=== PATIENT | female | born 1950 | race Caucasian/White ===

== ENCOUNTER 2021-10-07 16:08 | Inpatient (IN) ==
[2021-10-07] MEDS ORDERED: D5% in Water 1,000 ML IVC PRN (20:27)
[2021-10-07] MEDS ORDERED: Dextrose 4 GM Chewable Tablets PO PRN ×2 (20:27)
[2021-10-07] MEDS ORDERED: *HR* Dextrose 50 % in Water (Syg) 50 ML SYRINGE IVP PRN (20:27)
[2021-10-07] MEDS: Gabapentin 100 MG CAPSULE PO SCH (20:55)
[2021-10-07] MEDS: Carbidopa/Levodopa 25/100 TABLET PO SCH (20:55)
[2021-10-07] MEDS: *HR* OxyCODONE ER (12 HR) 10 MG TABLET PO SCH (20:56)
[2021-10-07] MEDS: Sennosides/Docusate Sodium TABLET PO SCH (20:56)
[2021-10-07] MEDS: *HR* Heparin 5,000 UNIT/ML VIAL SQ SCH (20:56)
[2021-10-07] MEDS: traZODone 50 MG TABLET PO SCH (20:56)
[2021-10-07] MEDS: Insulin LISPRO 300 UNITS/3 ML VIAL SUBQ SCH (21:49)
[2021-10-08] MEDS: *HR* OxyCODONE/APAP 10/325 TABLET PO PRN ×4 (00:43→23:12)
[2021-10-08] MEDS: *HR* Heparin 5,000 UNIT/ML VIAL SQ SCH ×2 (05:07→17:02)
[2021-10-08 05:59] LABS: Basophils % 0.2 %; Eosinophils # 0.3 K/mcL (0.0-0.6); Eosinophils % 2.8 %; Hematocrit 27.6 % (35.3-44.9); Hemoglobin 8.6 g/dL (11.5-15.4); Lymphocytes # 2.2 K/mcL (0.6-4.6); Lymphocytes % 23.6 %; Mean Corpuscular HGB Conc 31.2 g/dL (31.6-35.5); Mean Corpuscular Hemoglobin 29.6 pg (28.0-33.3); Mean Corpuscular Volume 94.8 fL (83.0-100.0); Mean Platelet Volume 9.1 fL (9.4-12.4); Monocytes # 0.9 K/mcL (0.0-1.3); Platelet Count 327 K/mcL (140-400); Red Blood Count 2.91 M/mcL (3.82-4.97); Red Cell Distribution Width 13.2 % (11.5-14.5); Segmented Neutrophils % 63.4 %; White Blood Count 9.4 K/mcL (4.3-11.1)
[2021-10-08 06:17] LABS: Calcium 9.2 mg/dL (8.6-10.3); Potassium 4.6 mEq/L (3.5-5.1)
[2021-10-08] MEDS: Insulin LISPRO 300 UNITS/3 ML VIAL SUBQ SCH ×4 (08:18→19:48)
[2021-10-08] MEDS: lisinopriL 5 MG TABLET PO SCH (08:20)
[2021-10-08] MEDS: Sennosides/Docusate Sodium TABLET PO SCH ×2 (08:20→20:22)
[2021-10-08] MEDS: *HR* OxyCODONE ER (12 HR) 10 MG TABLET PO SCH ×2 (08:20→20:22)
[2021-10-08] MEDS: Multivit/Ca/Min/Fe/FA 1 TAB TABLET PO SCH (08:20)
[2021-10-08] MEDS: Carbidopa/Levodopa 25/100 TABLET PO SCH ×3 (08:20→20:23)
[2021-10-08] MEDS: Gabapentin 100 MG CAPSULE PO SCH ×3 (08:21→20:23)
[2021-10-08] MEDS ORDERED: NON-FORMULARY MEDICATION 1 EACH EACH (Vit A/Vit C/Vit E/Zinc/Copper [Preservision Areds Ta PO SCH (09:00)
[2021-10-08 16:18] LABS: Bilirubin,Urine Negative (Negative); Blood,Urine Negative (Negative); Clarity,Urine Slightly Cloudy (Clear); Color,Urine Yellow (Yellow); Glucose,Urine (UA) Normal (Normal); Ketones,Urine 15 mg/dL (Negative); Leukocyte Esterase,Urine Negative (Negative); Nitrite,Urine Positive (Negative); PH,Urine 5.5 pH Units (5.0-8.0); Protein,Urine Negative (Neg-Trace); Urobilinogen,Urine Normal (Normal)
[2021-10-08 16:28] LABS: Bacteria,Urine Many per hpf (None-Few)
[2021-10-08 16:29] LABS: Mucus,Urine Few per lpf (None-Few); RBC,Urine 0-3 per hpf (0-3); Squamous Epithelial Cell,Urine Few per hpf (None-Few); WBC,Urine 15-30 per hpf (0-3)
[2021-10-08] MEDS: traZODone 50 MG TABLET PO SCH (20:23)
[2021-10-09] MEDS: *HR* OxyCODONE/APAP 10/325 TABLET PO PRN ×2 (05:29→16:51)
[2021-10-09] MEDS: *HR* Heparin 5,000 UNIT/ML VIAL SQ SCH ×2 (05:29→16:51)
[2021-10-09] MEDS: Insulin LISPRO 300 UNITS/3 ML VIAL SUBQ SCH ×4 (07:29→20:23)
[2021-10-09] MEDS: lisinopriL 5 MG TABLET PO SCH (09:08)
[2021-10-09] MEDS: Gabapentin 100 MG CAPSULE PO SCH ×3 (09:23→20:42)
[2021-10-09] MEDS: *HR* OxyCODONE ER (12 HR) 10 MG TABLET PO SCH ×2 (09:23→20:41)
[2021-10-09] MEDS: Sennosides/Docusate Sodium TABLET PO SCH ×2 (09:23→20:42)
[2021-10-09] MEDS: Carbidopa/Levodopa 25/100 TABLET PO SCH ×3 (09:24→20:41)
[2021-10-09] MEDS: Multivit/Ca/Min/Fe/FA 1 TAB TABLET PO SCH (09:24)
[2021-10-09] MEDS: Nitrofurantoin (BID) 100 MG CAPSULE PO SCH ×2 (09:24→16:51)
[2021-10-09] MEDS: Megestrol Acetate 400 MG/10 ML UDC PO SCH (11:24)
[2021-10-09] MEDS: traZODone 50 MG TABLET PO SCH (20:41)
[2021-10-10] MEDS: *HR* Heparin 5,000 UNIT/ML VIAL SQ SCH ×2 (05:18→17:49)
[2021-10-10] MEDS: *HR* OxyCODONE/APAP 10/325 TABLET PO PRN ×2 (05:21→22:47)
[2021-10-10] MEDS ORDERED: 0.9 % Sodium Chloride 500 ML IVC ONE ×2 (06:17→06:18)
[2021-10-10 06:23] LABS: Basophils % 0.2 %; Eosinophils # 0.4 K/mcL (0.0-0.6); Immature Granulocytes % 1.2 % (0-4); Lymphocytes # 2.8 K/mcL (0.6-4.6); Lymphocytes % 22.4 %; Mean Corpuscular HGB Conc 32.1 g/dL (31.6-35.5); Mean Corpuscular Hemoglobin 29.7 pg (28.0-33.3); Mean Corpuscular Volume 92.4 fL (83.0-100.0); Mean Platelet Volume 9.3 fL (9.4-12.4); Monocytes # 1.1 K/mcL (0.0-1.3); Monocytes % 8.5 %; Platelet Count 407 K/mcL (140-400); Red Blood Count 3.03 M/mcL (3.82-4.97); Red Cell Distribution Width 13.5 % (11.5-14.5); Segmented Neutrophils % 64.7 %; White Blood Count 12.3 K/mcL (4.3-11.1)
[2021-10-10 06:55] LABS: Alanine Aminotransferase 7 Units/L (7-52); Albumin 3.2 g/dL (3.5-5.7); Alkaline Phosphatase 105 Units/L (34-104); Aspartate Amino Transferase 21 Units/L (13-39); BUN/Creatinine Ratio 30 (6-26); Bilirubin,Total 0.4 mg/dL (0.3-1.0); Blood Urea Nitrogen 27 mg/dL (8-23); Calcium 9.5 mg/dL (8.6-10.3); Carbon Dioxide 28 mEq/L (23-29); Chloride 100 mEq/L (98-107); Globulin 3.2 g/dL (2.4-3.5); Glucose 133 mg/dL (70-105); Magnesium 2.1 mg/dL (1.6-2.6); Osmolality,Calculated 283 (280-300); Phosphorous 2.8 mg/dL (2.7-4.5); Potassium 4.3 mEq/L (3.5-5.1); Sodium 133 mEq/L (136-145); Total Protein 6.4 g/dL (6.4-8.9); eGFR For African Americans > 60 (> 60); eGFR For Non-African Americans > 60 (> 60)
[2021-10-10] MEDS: Insulin LISPRO 300 UNITS/3 ML VIAL SUBQ SCH ×4 (07:39→20:37)
[2021-10-10] MEDS: Sennosides/Docusate Sodium TABLET PO SCH ×2 (07:56→20:35)
[2021-10-10] MEDS: Multivit/Ca/Min/Fe/FA 1 TAB TABLET PO SCH (07:56)
[2021-10-10] MEDS: Megestrol Acetate 400 MG/10 ML UDC PO SCH (07:56)
[2021-10-10] MEDS: Nitrofurantoin (BID) 100 MG CAPSULE PO SCH (07:57)
[2021-10-10] MEDS: *HR* OxyCODONE ER (12 HR) 10 MG TABLET PO SCH ×2 (07:57→20:37)
[2021-10-10] MEDS: Gabapentin 100 MG CAPSULE PO SCH ×3 (07:57→20:36)
[2021-10-10] MEDS: lisinopriL 5 MG TABLET PO SCH (07:57)
[2021-10-10] MEDS: Carbidopa/Levodopa 25/100 TABLET PO SCH ×3 (07:57→20:34)
[2021-10-10] MEDS ORDERED: 0.9 % Sodium Chloride 1,000 ML IVC SCH (11:15)
[2021-10-10] MEDS: traZODone 50 MG TABLET PO SCH (20:34)
[2021-10-11 04:26] LABS: Basophils % 0.2 %; Eosinophils # 0.3 K/mcL (0.0-0.6); Eosinophils % 2.9 %; Hematocrit 25.3 % (35.3-44.9); Hemoglobin 8.2 g/dL (11.5-15.4); Lymphocytes # 2.8 K/mcL (0.6-4.6); Lymphocytes % 24.8 %; Mean Corpuscular HGB Conc 32.4 g/dL (31.6-35.5); Mean Corpuscular Volume 92.7 fL (83.0-100.0); Monocytes # 0.9 K/mcL (0.0-1.3); Monocytes % 7.8 %; Platelet Count 359 K/mcL (140-400); Red Blood Count 2.73 M/mcL (3.82-4.97); Red Cell Distribution Width 13.8 % (11.5-14.5); Segmented Neutrophils % 63.3 %; White Blood Count 11.1 K/mcL (4.3-11.1)
[2021-10-11 04:41] LABS: BUN/Creatinine Ratio 23 (6-26); Blood Urea Nitrogen 21 mg/dL (8-23); Calcium 8.9 mg/dL (8.6-10.3); Carbon Dioxide 29 mEq/L (23-29); Chloride 102 mEq/L (98-107); Glucose 115 mg/dL (70-105); Osmolality,Calculated 282 (280-300); Potassium 4.4 mEq/L (3.5-5.1); Sodium 134 mEq/L (136-145); eGFR For African Americans > 60 (> 60); eGFR For Non-African Americans > 60 (> 60)
[2021-10-11] MEDS: *HR* Heparin 5,000 UNIT/ML VIAL SQ SCH ×2 (06:00→14:31)
[2021-10-11] MEDS: Carbidopa/Levodopa 25/100 TABLET PO SCH ×3 (08:08→20:57)
[2021-10-11] MEDS: Insulin LISPRO 300 UNITS/3 ML VIAL SUBQ SCH ×4 (08:08→20:58)
[2021-10-11] MEDS: Multivit/Ca/Min/Fe/FA 1 TAB TABLET PO SCH (08:08)
[2021-10-11] MEDS: lisinopriL 5 MG TABLET PO SCH (08:09)
[2021-10-11] MEDS: *HR* OxyCODONE ER (12 HR) 10 MG TABLET PO SCH ×2 (08:09→20:57)
[2021-10-11] MEDS: Sennosides/Docusate Sodium TABLET PO SCH ×2 (08:09→20:57)
[2021-10-11] MEDS: Megestrol Acetate 400 MG/10 ML UDC PO SCH ×2 (08:10→08:12)
[2021-10-11] MEDS: Gabapentin 100 MG CAPSULE PO SCH ×3 (08:10→21:01)
[2021-10-11] MEDS: *HR* OxyCODONE/APAP 10/325 TABLET PO PRN (14:30)
[2021-10-11] MEDS ORDERED: 0.9 % Sodium Chloride 1,000 ML IVC SCH (18:00)
[2021-10-11] MEDS: traZODone 50 MG TABLET PO SCH (20:57)
[2021-10-12] MEDS ORDERED: Ketorolac 30 MG/ML VIAL IVP ONE (04:20)
[2021-10-12] MEDS: *HR* Heparin 5,000 UNIT/ML VIAL SQ SCH ×2 (04:40→17:02)
[2021-10-12 05:12] LABS: Basophils % 0.4 %; Eosinophils # 0.5 K/mcL (0.0-0.6); Hemoglobin 7.7 g/dL (11.5-15.4); Immature Granulocytes % 1.2 % (0-4); Lymphocytes # 2.5 K/mcL (0.6-4.6); Lymphocytes % 28.8 %; Mean Corpuscular HGB Conc 32.1 g/dL (31.6-35.5); Mean Corpuscular Hemoglobin 30.4 pg (28.0-33.3); Mean Corpuscular Volume 94.9 fL (83.0-100.0); Mean Platelet Volume 9.5 fL (9.4-12.4); Monocytes # 0.6 K/mcL (0.0-1.3); Monocytes % 7.4 %; Neutrophils # 4.8 K/mcL (1.6-8.9); Platelet Count 372 K/mcL (140-400); Red Blood Count 2.53 M/mcL (3.82-4.97); Red Cell Distribution Width 14.3 % (11.5-14.5); Segmented Neutrophils % 56.2 %; White Blood Count 8.6 K/mcL (4.3-11.1)
[2021-10-12 05:25] LABS: BUN/Creatinine Ratio 22 (6-26); Blood Urea Nitrogen 19 mg/dL (8-23); Calcium 8.6 mg/dL (8.6-10.3); Carbon Dioxide 27 mEq/L (23-29); Chloride 106 mEq/L (98-107); Glucose 131 mg/dL (70-105); Osmolality,Calculated 288 (280-300); Potassium 4.3 mEq/L (3.5-5.1); Sodium 137 mEq/L (136-145); eGFR For African Americans > 60 (> 60); eGFR For Non-African Americans > 60 (> 60)
[2021-10-12] MEDS: Insulin LISPRO 300 UNITS/3 ML VIAL SUBQ SCH ×4 (08:50→21:08)
[2021-10-12] MEDS: *HR* OxyCODONE/APAP 10/325 TABLET PO PRN ×2 (08:54→14:50)
[2021-10-12] MEDS: *HR* OxyCODONE ER (12 HR) 10 MG TABLET PO SCH ×2 (08:54→21:06)
[2021-10-12] MEDS: Sennosides/Docusate Sodium TABLET PO SCH ×2 (08:55→21:07)
[2021-10-12] MEDS: Multivit/Ca/Min/Fe/FA 1 TAB TABLET PO SCH (08:55)
[2021-10-12] MEDS: Megestrol Acetate 400 MG/10 ML UDC PO SCH (08:55)
[2021-10-12] MEDS: Carbidopa/Levodopa 25/100 TABLET PO SCH ×3 (08:55→21:07)
[2021-10-12] MEDS: Gabapentin 100 MG CAPSULE PO SCH ×3 (08:56→21:06)
[2021-10-12] MEDS: lisinopriL 5 MG TABLET PO SCH (09:55)
[2021-10-12] MEDS ORDERED: 0.9 % Sodium Chloride 1,000 ML IVC SCH (12:00)
[2021-10-12] MEDS: Cefepime HCl 1,000 MG in 0.9 % Sodium Chloride 10 ML IVP SCH ×2 (12:44→23:49)
[2021-10-12] MEDS ORDERED: Cefepime HCl 1,000 MG in 0.9 % Sodium Chloride 10 ML IVP SCH (18:00)
[2021-10-12] MEDS: traZODone 50 MG TABLET PO SCH (21:06)
[2021-10-12] MEDS: polyethylene glycoL 3350 17 GM POWD.PACK PO SCH (21:07)
[2021-10-13] MEDS: *HR* Heparin 5,000 UNIT/ML VIAL SQ SCH ×2 (05:34→17:40)
[2021-10-13] MEDS: Insulin LISPRO 300 UNITS/3 ML VIAL SUBQ SCH ×4 (08:10→20:06)
[2021-10-13] MEDS: Carbidopa/Levodopa 25/100 TABLET PO SCH ×3 (08:12→20:24)
[2021-10-13] MEDS: polyethylene glycoL 3350 17 GM POWD.PACK PO SCH ×2 (08:12→20:22)
[2021-10-13] MEDS: Megestrol Acetate 400 MG/10 ML UDC PO SCH (08:12)
[2021-10-13] MEDS: lisinopriL 5 MG TABLET PO SCH (08:12)
[2021-10-13] MEDS: Gabapentin 100 MG CAPSULE PO SCH ×3 (08:12→20:23)
[2021-10-13] MEDS: Sennosides/Docusate Sodium TABLET PO SCH ×2 (08:12→20:23)
[2021-10-13] MEDS: *HR* OxyCODONE ER (12 HR) 10 MG TABLET PO SCH ×2 (08:12→20:23)
[2021-10-13] MEDS: Multivit/Ca/Min/Fe/FA 1 TAB TABLET PO SCH (08:12)
[2021-10-13] MEDS: Cefepime HCl 1,000 MG in 0.9 % Sodium Chloride 10 ML IVP SCH ×2 (11:10→23:20)
[2021-10-13] MEDS: *HR* OxyCODONE/APAP 10/325 TABLET PO PRN ×2 (11:10→17:40)
[2021-10-13 11:11] LABS: Basophils % 0.3 %; Eosinophils # 0.8 K/mcL (0.0-0.6); Eosinophils % 7.6 %; Hematocrit 28.2 % (35.3-44.9); Hemoglobin 8.9 g/dL (11.5-15.4); Immature Granulocytes % 1.2 % (0-4); Lymphocytes # 2.8 K/mcL (0.6-4.6); Lymphocytes % 25.5 %; Mean Corpuscular HGB Conc 31.6 g/dL (31.6-35.5); Mean Corpuscular Hemoglobin 30.1 pg (28.0-33.3); Mean Corpuscular Volume 95.3 fL (83.0-100.0); Mean Platelet Volume 9.3 fL (9.4-12.4); Monocytes # 0.7 K/mcL (0.0-1.3); Monocytes % 6.5 %; Neutrophils # 6.4 K/mcL (1.6-8.9); Platelet Count 495 K/mcL (140-400); Red Blood Count 2.96 M/mcL (3.82-4.97); Red Cell Distribution Width 14.7 % (11.5-14.5); Segmented Neutrophils % 58.9 %; White Blood Count 10.9 K/mcL (4.3-11.1)
[2021-10-13 11:31] LABS: BUN/Creatinine Ratio 17 (6-26); Blood Urea Nitrogen 17 mg/dL (8-23); Calcium 9.2 mg/dL (8.6-10.3); Carbon Dioxide 27 mEq/L (23-29); Chloride 103 mEq/L (98-107); Glucose 144 mg/dL (70-105); Osmolality,Calculated 286 (280-300); Potassium 4.3 mEq/L (3.5-5.1); Sodium 136 mEq/L (136-145); eGFR For African Americans > 60 (> 60); eGFR For Non-African Americans 56 (> 60)
[2021-10-13] MEDS: traZODone 50 MG TABLET PO SCH (20:24)
[2021-10-14] MEDS: *HR* Heparin 5,000 UNIT/ML VIAL SQ SCH ×2 (05:04→17:00)
[2021-10-14] MEDS: Insulin LISPRO 300 UNITS/3 ML VIAL SUBQ SCH ×4 (08:22→19:57)
[2021-10-14] MEDS: Gabapentin 100 MG CAPSULE PO SCH ×3 (08:23→19:56)
[2021-10-14] MEDS: Megestrol Acetate 400 MG/10 ML UDC PO SCH (08:23)
[2021-10-14] MEDS: lisinopriL 5 MG TABLET PO SCH (08:23)
[2021-10-14] MEDS: Multivit/Ca/Min/Fe/FA 1 TAB TABLET PO SCH (08:24)
[2021-10-14] MEDS: polyethylene glycoL 3350 17 GM POWD.PACK PO SCH ×2 (08:24→19:57)
[2021-10-14] MEDS: Carbidopa/Levodopa 25/100 TABLET PO SCH ×3 (08:24→19:54)
[2021-10-14] MEDS: Sennosides/Docusate Sodium TABLET PO SCH ×2 (08:24→19:53)
[2021-10-14] MEDS: *HR* OxyCODONE ER (12 HR) 10 MG TABLET PO SCH ×2 (08:24→19:54)
[2021-10-14] MEDS: Cefepime HCl 1,000 MG in 0.9 % Sodium Chloride 10 ML IVP SCH (11:14)
[2021-10-14] MEDS: *HR* OxyCODONE/APAP 10/325 TABLET PO PRN (11:42)
[2021-10-14] MEDS: traZODone 50 MG TABLET PO SCH (19:55)
[2021-10-15] MEDS: Cefepime HCl 1,000 MG in 0.9 % Sodium Chloride 10 ML IVP SCH ×2 (02:56→12:10)
[2021-10-15] MEDS: *HR* OxyCODONE/APAP 10/325 TABLET PO PRN ×3 (03:15→14:37)
[2021-10-15] MEDS: *HR* Heparin 5,000 UNIT/ML VIAL SQ SCH ×2 (05:23→17:32)
[2021-10-15] MEDS: Gabapentin 100 MG CAPSULE PO SCH ×3 (08:36→21:07)
[2021-10-15] MEDS: Carbidopa/Levodopa 25/100 TABLET PO SCH ×3 (08:36→21:05)
[2021-10-15] MEDS: Multivit/Ca/Min/Fe/FA 1 TAB TABLET PO SCH (08:36)
[2021-10-15] MEDS: Insulin LISPRO 300 UNITS/3 ML VIAL SUBQ SCH ×4 (08:36→21:08)
[2021-10-15] MEDS: *HR* OxyCODONE ER (12 HR) 10 MG TABLET PO SCH ×2 (08:37→21:07)
[2021-10-15] MEDS: polyethylene glycoL 3350 17 GM POWD.PACK PO SCH ×2 (08:38→21:11)
[2021-10-15] MEDS: Sennosides/Docusate Sodium TABLET PO SCH ×2 (08:38→21:05)
[2021-10-15] MEDS: lisinopriL 5 MG TABLET PO SCH (08:38)
[2021-10-15] MEDS ORDERED: Ketorolac 30 MG/ML VIAL IVP ONE (20:45)
[2021-10-15] MEDS: traZODone 50 MG TABLET PO SCH (21:06)
[2021-10-16] MEDS: Cefepime HCl 1,000 MG in 0.9 % Sodium Chloride 10 ML IVP SCH ×2 (02:21→12:08)
[2021-10-16 05:59] LABS: Hematocrit 27.5 % (35.3-44.9); Hemoglobin 8.6 g/dL (11.5-15.4); Mean Corpuscular HGB Conc 31.3 g/dL (31.6-35.5); Mean Corpuscular Hemoglobin 29.9 pg (28.0-33.3); Mean Corpuscular Volume 95.5 fL (83.0-100.0); Mean Platelet Volume 9.5 fL (9.4-12.4); Platelet Count 467 K/mcL (140-400); Red Blood Count 2.88 M/mcL (3.82-4.97); Red Cell Distribution Width 15.7 % (11.5-14.5); White Blood Count 16.7 K/mcL (4.3-11.1)
[2021-10-16 06:22] LABS: Albumin 3.1 g/dL (3.5-5.7); Bilirubin,Total 0.4 mg/dL (0.3-1.0); Calcium 9.3 mg/dL (8.6-10.3); Globulin 3.2 g/dL (2.4-3.5); Magnesium 1.8 mg/dL (1.6-2.6); Potassium 4.9 mEq/L (3.5-5.1); Total Protein 6.3 g/dL (6.4-8.9)
[2021-10-16] MEDS: *HR* Heparin 5,000 UNIT/ML VIAL SQ SCH ×2 (06:36→16:49)
[2021-10-16] MEDS: Carbidopa/Levodopa 25/100 TABLET PO SCH ×3 (08:21→20:28)
[2021-10-16] MEDS: Gabapentin 100 MG CAPSULE PO SCH ×3 (08:21→20:28)
[2021-10-16] MEDS: *HR* OxyCODONE ER (12 HR) 10 MG TABLET PO SCH ×2 (08:22→20:26)
[2021-10-16] MEDS: polyethylene glycoL 3350 17 GM POWD.PACK PO SCH ×2 (08:22→20:28)
[2021-10-16] MEDS: Sennosides/Docusate Sodium TABLET PO SCH ×2 (08:22→20:28)
[2021-10-16] MEDS: lisinopriL 5 MG TABLET PO SCH (08:22)
[2021-10-16] MEDS: Insulin LISPRO 300 UNITS/3 ML VIAL SUBQ SCH ×4 (08:22→20:27)
[2021-10-16] MEDS: Multivit/Ca/Min/Fe/FA 1 TAB TABLET PO SCH (08:22)
[2021-10-16] MEDS: Ascorbic Acid 500 MG TABLET PO SCH (08:22)
[2021-10-16] MEDS: traZODone 50 MG TABLET PO SCH (20:29)
[2021-10-17] MEDS: Cefepime HCl 1,000 MG in 0.9 % Sodium Chloride 10 ML IVP SCH ×2 (00:06→11:52)
[2021-10-17] MEDS: *HR* Heparin 5,000 UNIT/ML VIAL SQ SCH ×2 (05:11→17:11)
[2021-10-17] MEDS: *HR* OxyCODONE/APAP 5/325 TABLET PO PRN (06:23)
[2021-10-17] MEDS: Insulin LISPRO 300 UNITS/3 ML VIAL SUBQ SCH ×4 (07:50→20:06)
[2021-10-17] MEDS: lisinopriL 5 MG TABLET PO SCH (08:40)
[2021-10-17] MEDS: polyethylene glycoL 3350 17 GM POWD.PACK PO SCH ×2 (08:47→20:13)
[2021-10-17] MEDS: Multivit/Ca/Min/Fe/FA 1 TAB TABLET PO SCH (08:47)
[2021-10-17] MEDS: *HR* OxyCODONE ER (12 HR) 10 MG TABLET PO SCH ×2 (08:47→20:14)
[2021-10-17] MEDS: Carbidopa/Levodopa 25/100 TABLET PO SCH ×3 (08:47→20:14)
[2021-10-17] MEDS: Gabapentin 100 MG CAPSULE PO SCH ×3 (08:47→20:16)
[2021-10-17] MEDS: Sennosides/Docusate Sodium TABLET PO SCH ×2 (08:48→20:13)
[2021-10-17] MEDS: Ascorbic Acid 500 MG TABLET PO SCH (08:48)
[2021-10-17] MEDS: traZODone 50 MG TABLET PO SCH (20:16)
[2021-10-18] MEDS: Cefepime HCl 1,000 MG in 0.9 % Sodium Chloride 10 ML IVP SCH ×3 (00:02→23:24)
[2021-10-18] MEDS: *HR* Heparin 5,000 UNIT/ML VIAL SQ SCH ×2 (04:56→17:28)
[2021-10-18] MEDS: Insulin LISPRO 300 UNITS/3 ML VIAL SUBQ SCH ×4 (08:17→20:20)
[2021-10-18] MEDS: Sennosides/Docusate Sodium TABLET PO SCH ×2 (08:23→20:32)
[2021-10-18] MEDS: polyethylene glycoL 3350 17 GM POWD.PACK PO SCH ×2 (08:23→20:32)
[2021-10-18] MEDS: Multivit/Ca/Min/Fe/FA 1 TAB TABLET PO SCH (08:23)
[2021-10-18] MEDS: Carbidopa/Levodopa 25/100 TABLET PO SCH ×3 (08:23→20:32)
[2021-10-18] MEDS: *HR* OxyCODONE ER (12 HR) 10 MG TABLET PO SCH ×2 (08:23→20:36)
[2021-10-18] MEDS: Ascorbic Acid 500 MG TABLET PO SCH (08:24)
[2021-10-18] MEDS: Gabapentin 100 MG CAPSULE PO SCH ×3 (08:24→20:32)
[2021-10-18] MEDS: lisinopriL 5 MG TABLET PO SCH (08:24)
[2021-10-18] MEDS: traZODone 50 MG TABLET PO SCH (22:09)
[2021-10-18] MEDS: *HR* OxyCODONE/APAP 5/325 TABLET PO PRN (23:27)
[2021-10-19] MEDS: *HR* Heparin 5,000 UNIT/ML VIAL SQ SCH ×2 (04:57→16:55)
[2021-10-19 04:58] LABS: Hematocrit 26.6 % (35.3-44.9); Hemoglobin 8.4 g/dL (11.5-15.4); Mean Corpuscular HGB Conc 31.6 g/dL (31.6-35.5); Mean Corpuscular Hemoglobin 29.9 pg (28.0-33.3); Mean Corpuscular Volume 94.7 fL (83.0-100.0); Mean Platelet Volume 9.3 fL (9.4-12.4); Platelet Count 441 K/mcL (140-400); Red Blood Count 2.81 M/mcL (3.82-4.97); Red Cell Distribution Width 14.8 % (11.5-14.5); White Blood Count 10.1 K/mcL (4.3-11.1)
[2021-10-19 05:24] LABS: Alanine Aminotransferase 2 Units/L (7-52); Alkaline Phosphatase 83 Units/L (34-104); Aspartate Amino Transferase 11 Units/L (13-39); BUN/Creatinine Ratio 28 (6-26); Bilirubin,Total 0.3 mg/dL (0.3-1.0); Blood Urea Nitrogen 27 mg/dL (8-23); Calcium 9.6 mg/dL (8.6-10.3); Carbon Dioxide 26 mEq/L (23-29); Chloride 107 mEq/L (98-107); Glucose 145 mg/dL (70-105); Magnesium 1.9 mg/dL (1.6-2.6); Osmolality,Calculated 292 (280-300); Potassium 5.3 mEq/L (3.5-5.1); Sodium 137 mEq/L (136-145); eGFR For African Americans > 60 (> 60); eGFR For Non-African Americans 58 (> 60)
[2021-10-19] MEDS: lisinopriL 5 MG TABLET PO SCH (09:14)
[2021-10-19] MEDS: *HR* OxyCODONE ER (12 HR) 10 MG TABLET PO SCH ×2 (09:15→20:52)
[2021-10-19] MEDS: Ascorbic Acid 500 MG TABLET PO SCH (09:15)
[2021-10-19] MEDS: Sennosides/Docusate Sodium TABLET PO SCH ×2 (09:15→20:52)
[2021-10-19] MEDS: Carbidopa/Levodopa 25/100 TABLET PO SCH ×3 (09:15→20:54)
[2021-10-19] MEDS: Multivit/Ca/Min/Fe/FA 1 TAB TABLET PO SCH (09:15)
[2021-10-19] MEDS: Gabapentin 100 MG CAPSULE PO SCH ×3 (09:15→20:53)
[2021-10-19] MEDS: Insulin LISPRO 300 UNITS/3 ML VIAL SUBQ SCH ×4 (09:15→20:56)
[2021-10-19] MEDS: polyethylene glycoL 3350 17 GM POWD.PACK PO SCH ×2 (09:16→20:52)
[2021-10-19] MEDS: *HR* OxyCODONE/APAP 5/325 TABLET PO PRN ×2 (11:40→22:52)
[2021-10-19] MEDS: Cefepime HCl 1,000 MG in 0.9 % Sodium Chloride 10 ML IVP SCH (11:41)
[2021-10-19] MEDS ORDERED: Perflutren Lipid Microsphere 1.3 ML in 0.9 % Sodium Chloride 8.7 ML IVP PRN (13:26)
[2021-10-19] MEDS: traZODone 50 MG TABLET PO SCH (20:53)
[2021-10-20] MEDS: *HR* Heparin 5,000 UNIT/ML VIAL SQ SCH ×2 (04:01→17:55)
[2021-10-20] MEDS: Insulin LISPRO 300 UNITS/3 ML VIAL SUBQ SCH ×4 (08:26→20:28)
[2021-10-20] MEDS: Gabapentin 100 MG CAPSULE PO SCH ×3 (08:26→20:35)
[2021-10-20] MEDS: *HR* OxyCODONE/APAP 5/325 TABLET PO PRN ×2 (08:26→13:56)
[2021-10-20] MEDS: Sennosides/Docusate Sodium TABLET PO SCH ×2 (08:27→20:34)
[2021-10-20] MEDS: Ascorbic Acid 500 MG TABLET PO SCH (08:27)
[2021-10-20] MEDS: lisinopriL 5 MG TABLET PO SCH (08:27)
[2021-10-20] MEDS: Multivit/Ca/Min/Fe/FA 1 TAB TABLET PO SCH (08:27)
[2021-10-20] MEDS: polyethylene glycoL 3350 17 GM POWD.PACK PO SCH ×2 (08:27→20:34)
[2021-10-20] MEDS: *HR* OxyCODONE ER (12 HR) 10 MG TABLET PO SCH ×2 (08:27→20:34)
[2021-10-20] MEDS: Carbidopa/Levodopa 25/100 TABLET PO SCH ×3 (08:28→20:36)
[2021-10-20] MEDS: traZODone 50 MG TABLET PO SCH (20:35)
[2021-10-21] MEDS: *HR* Heparin 5,000 UNIT/ML VIAL SQ SCH ×2 (04:44→16:21)
[2021-10-21] MEDS: Insulin LISPRO 300 UNITS/3 ML VIAL SUBQ SCH ×4 (08:40→23:02)
[2021-10-21] MEDS: Gabapentin 100 MG CAPSULE PO SCH ×3 (08:40→23:06)
[2021-10-21] MEDS: *HR* OxyCODONE ER (12 HR) 10 MG TABLET PO SCH (08:41)
[2021-10-21] MEDS: lisinopriL 5 MG TABLET PO SCH (08:41)
[2021-10-21] MEDS: Multivit/Ca/Min/Fe/FA 1 TAB TABLET PO SCH (08:41)
[2021-10-21] MEDS: *HR* OxyCODONE/APAP 5/325 TABLET PO PRN ×3 (08:41→23:08)
[2021-10-21] MEDS: Ascorbic Acid 500 MG TABLET PO SCH (08:41)
[2021-10-21] MEDS: Carbidopa/Levodopa 25/100 TABLET PO SCH ×3 (08:41→23:09)
[2021-10-21] MEDS: polyethylene glycoL 3350 17 GM POWD.PACK PO SCH ×2 (08:42→23:03)
[2021-10-21] MEDS: Sennosides/Docusate Sodium TABLET PO SCH ×2 (08:42→23:07)
[2021-10-21 19:20] VITALS: RESP 16
[2021-10-21] MEDS: traZODone 50 MG TABLET PO SCH (23:10)
[2021-10-22 05:54] LABS: Basophils # 0.1 K/mcL (0.0-0.2); Basophils % 0.8 %; Eosinophils # 2.1 K/mcL (0.0-0.6); Eosinophils % 22.1 %; Hemoglobin 8.6 g/dL (11.5-15.4); Immature Granulocytes % 0.8 % (0-4); Lymphocytes # 2.7 K/mcL (0.6-4.6); Lymphocytes % 27.9 %; Mean Corpuscular HGB Conc 31.9 g/dL (31.6-35.5); Mean Corpuscular Volume 94.1 fL (83.0-100.0); Mean Platelet Volume 9.3 fL (9.4-12.4); Monocytes # 0.7 K/mcL (0.0-1.3); Monocytes % 7.6 %; Neutrophils # 3.9 K/mcL (1.6-8.9); Platelet Count 398 K/mcL (140-400); Red Blood Count 2.87 M/mcL (3.82-4.97); Red Cell Distribution Width 14.6 % (11.5-14.5); Segmented Neutrophils % 40.8 %; White Blood Count 9.5 K/mcL (4.3-11.1)
[2021-10-22 06:14] LABS: BUN/Creatinine Ratio 31 (6-26); Blood Urea Nitrogen 30 mg/dL (8-23); Calcium 10.1 mg/dL (8.6-10.3); Carbon Dioxide 24 mEq/L (23-29); Chloride 105 mEq/L (98-107); Glucose 131 mg/dL (70-105); Osmolality,Calculated 292 (280-300); Potassium 4.6 mEq/L (3.5-5.1); Sodium 137 mEq/L (136-145); eGFR For African Americans > 60 (> 60); eGFR For Non-African Americans 57 (> 60)
[2021-10-22] MEDS: *HR* Heparin 5,000 UNIT/ML VIAL SQ SCH ×2 (06:25→17:00)
[2021-10-22] MEDS: *HR* OxyCODONE/APAP 5/325 TABLET PO PRN ×3 (06:25→20:49)
[2021-10-22] MEDS: *HR* OxyCODONE ER (12 HR) 10 MG TABLET PO SCH (07:29)
[2021-10-22] MEDS: Insulin LISPRO 300 UNITS/3 ML VIAL SUBQ SCH ×4 (08:38→20:41)
[2021-10-22] MEDS: lisinopriL 5 MG TABLET PO SCH (08:42)
[2021-10-22] MEDS: polyethylene glycoL 3350 17 GM POWD.PACK PO SCH ×2 (08:47→20:49)
[2021-10-22] MEDS: Multivit/Ca/Min/Fe/FA 1 TAB TABLET PO SCH (08:48)
[2021-10-22] MEDS: Carbidopa/Levodopa 25/100 TABLET PO SCH ×3 (08:48→20:48)
[2021-10-22] MEDS: Sennosides/Docusate Sodium TABLET PO SCH ×2 (08:48→20:49)
[2021-10-22] MEDS: Ascorbic Acid 500 MG TABLET PO SCH (08:48)
[2021-10-22] MEDS: Gabapentin 100 MG CAPSULE PO SCH ×3 (08:48→20:48)
[2021-10-22] MEDS: traZODone 50 MG TABLET PO SCH (20:48)
[2021-10-23] MEDS: *HR* Heparin 5,000 UNIT/ML VIAL SQ SCH (05:49)
[2021-10-23 06:35] VITALS: BP 110/69; PULSE 83; TEMP 98; O2SAT 100
[2021-10-23] MEDS: Insulin LISPRO 300 UNITS/3 ML VIAL SUBQ SCH ×2 (08:37→12:06)
[2021-10-23] MEDS: lisinopriL 5 MG TABLET PO SCH (08:45)
[2021-10-23] MEDS: Multivit/Ca/Min/Fe/FA 1 TAB TABLET PO SCH (08:45)
[2021-10-23] MEDS: Ascorbic Acid 500 MG TABLET PO SCH (08:45)
[2021-10-23] MEDS: Carbidopa/Levodopa 25/100 TABLET PO SCH (08:45)
[2021-10-23] MEDS: Gabapentin 100 MG CAPSULE PO SCH (08:46)
[2021-10-23] MEDS: *HR* OxyCODONE/APAP 5/325 TABLET PO PRN (08:46)
[2021-10-23] MEDS: Sennosides/Docusate Sodium TABLET PO SCH (08:46)
[2021-10-23] MEDS: polyethylene glycoL 3350 17 GM POWD.PACK PO SCH (08:47)
== END 2021-10-23 14:28 | disposition home health service (06) | DRG 560 ==
LOC: INPGRE 19:31
PROVIDERS: ADMIT Family Medicine; ATTEND Family Medicine